=== PATIENT | male | born 1940 | race Caucasian/White ===

== ENCOUNTER → 2017-06-03 | Outpatient (CLI) | payer OTHER, MEDICARE | END | disposition home or self-care (01) | LOC: RAD 14:57 | PROC: 009U3ZZ Drainage of Spinal Canal, Percutaneous Approach (ICD-10-PCS; principal; 2017-06-03) | DX: G20 Parkinson's disease (principal); D33.3 Benign neoplasm of cranial nerves; G91.2 (Idiopathic) normal pressure hydrocephalus; M25.552 Pain in left hip | CPT/HCPCS: 62272; 77003 ==

== ENCOUNTER → 2017-06-22 | Outpatient (CLI) | payer OTHER, MEDICARE | END | disposition home or self-care (01) | LOC: NUC 08:29 | DX: M41.86 Other forms of scoliosis, lumbar region (principal); M46.86 Other specified inflammatory spondylopathies, lumbar region; M17.0 Bilateral primary osteoarthritis of knee; R10.32 Left lower quadrant pain; M47.816 Spondylosis without myelopathy or radiculopathy, lumbar region; Z91.81 History of falling | CPT/HCPCS: 78315; A9503 ==

== ENCOUNTER 2017-08-01 07:59 | Inpatient (IN) | payer OTHER, MEDICARE ==
[~2017-08-01] VITALS: Ht 182.9 cm; Wt 97.4 kg
[2017-08-01 08:36] LABS: BASOPHIL (%) 0.4 % (0-1); EOSINOPHIL (%) 0.8 % (0-5); EOSINOPHIL COUNT 0.1 K/uL (0-0.3); HEMOGLOBIN 14.1 G/DL (12.5-16.6); IMMATURE GRANULOCYTE (%) 0.3 % (0.0-0.7); LYMPHOCYTE (%) 9.5 % (15-42); MCH 29.3 PG (29.0-34.0); MCHC 33.6 G/DL (30.0-36.0); MCV 87.1 FL (86-99); MONOCYTE (%) 4.1 % (3-12); MONOCYTE COUNT 0.4 K/uL (0-0.8); NEUTROPHIL (%) 84.9 % (45-76); NEUTROPHIL COUNT 8.5 K/uL (1.8-6.4); PLATELET COUNT 184 K/uL (156-360); RBC DIS.WIDTH-CV 13.1 % (11.8-14.6); RBC DIS.WIDTH-SD 41.7 % (39-53); RED BLOOD COUNT 4.82 M/uL (4.00-5.50)
[2017-08-01 08:45] LABS: PTT 30.6 SEC (25-37)
[2017-08-01 08:53] LABS: CHLORIDE 103 mEq/L (99-109); POTASSIUM 4.2 mEq/L (3.7-5.4); SODIUM 139 mEq/L (136-147)
[2017-08-01 08:54] LABS: GLUCOSE 170 mg/dL (70-99)
[2017-08-01 08:58] LABS: GFR ESTIMATE (CALCULATED) > 59 mL/min/ (58.99-99999)
[2017-08-01 08:59] LABS: UREA NITROGEN (BUN) 22 mg/dL (9-23)
[2017-08-01 09:05] LABS: TROP-I INTERPRETATION NEGATIVE; TROPONIN-I 0.01 ng/mL (0.0-0.30)
[2017-08-01 09:46] LABS: APPEARANCE CLEAR ((CLEAR)); BILIRUBIN NEGATIVE; BLOOD SMALL; COLOR YELLOW ((YELLOW)); GLUCOSE (STRIP) 50; KETONES 20; LEUKOCYTES NEGATIVE; NITRITE NEGATIVE; PROTEIN (STRIP) >=500; UROBILINOGEN 0.2 MG/DL (0.2-1.0)
[2017-08-01 09:52] LABS: BACTERIA NONE SEEN /HPF; EPITHELIAL CELLS NONE SEEN /HPF; HYALINE CASTS 0-5 /LPF; MUCUS TRACE /LPF; RED BLOOD CELLS 0-5 /HPF (0-5); UCUL ADDED? NO; WHITE BLOOD CELLS 0-5 /HPF (0-5)
[2017-08-01] MEDS ORDERED: METFORMIN HCL500 MG PO (13:35)
[2017-08-01] MEDS ORDERED: CARBIDOPA-LEVO1 EAC7 PO (13:35)
[2017-08-01] MEDS ORDERED: DULOXETINE HCL30 MG PO (13:35)
[2017-08-01] MEDS ORDERED: LEVEMIR FL100 UNIT/1 SC ×2 (13:36)
[2017-08-01] MEDS ORDERED: ATORVASTATIN CA10 MG PO (13:37)
[2017-08-01] MEDS ORDERED: JANUVIA100 MG PO (13:37)
[2017-08-01] MEDS ORDERED: TAMSULOSIN HCL0.4 MG PO (13:37)
[2017-08-01] MEDS ORDERED: AMLODIPINE BESYL5 MG PO (13:37)
[2017-08-01] MEDS ORDERED: LOSARTAN POTASS50 MG PO (13:37)
[2017-08-01] MEDS ORDERED: DIABETA2.5 MG PO (13:38)
[2017-08-01] MEDS ORDERED: CLONAZEPAM0.5 MG PO (13:38)
[2017-08-01] MEDS ORDERED: CARBIDOPA/LEVO1 EACH PO (13:39)
[2017-08-01] MEDS ORDERED: ASPIR 8181 M1 PO (13:40)
[2017-08-01] MEDS ORDERED: CIALIS5 MG PO (13:40)
[2017-08-01 15:37] VITALS: BP 145/72
[2017-08-01 19:29] VITALS: BP 163/76
[2017-08-01 23:58] VITALS: BP 140/70
[2017-08-02] VITALS (7 sets, daily range): BP systolic 137–179; BP diastolic 65–84
[2017-08-02 06:16] LABS: HEMATOCRIT 42.5 % (38.0-50.0); HEMOGLOBIN 14.2 G/DL (12.5-16.6); MCH 29.1 PG (29.0-34.0); MCHC 33.4 G/DL (30.0-36.0); MCV 87.1 FL (86-99); PLATELET COUNT 193 K/uL (156-360); RBC DIS.WIDTH-CV 13.2 % (11.8-14.6); RBC DIS.WIDTH-SD 41.6 % (39-53); RED BLOOD COUNT 4.88 M/uL (4.00-5.50); WHITE BLOOD COUNT 8.2 K/uL (4.1-10.2)
[2017-08-02 06:34] LABS: CHLORIDE 104 MEQ/L (99-109); CREATININE 0.9 MG/DL (0.6-1.3); GFR ESTIMATE (CALCULATED) > 59 mL/min/ (58.99-99999); POTASSIUM 3.5 MEQ/L (3.7-5.4); SODIUM 140 MEQ/L (136-147); UREA NITROGEN (BUN) 17 mg/dL (9-23)
[2017-08-02 06:40] LABS: GLUCOSE 73 mg/dL (70-99)
[2017-08-02 10:19] LABS: HEMOGLOBIN A1c (GLYCOHEMOGLOB) 7.8 % (Below 5.7)
[2017-08-03] VITALS (7 sets, daily range): BP systolic 160–197; BP diastolic 79–94
[2017-08-04 03:34] VITALS: BP 160/86
[2017-08-04 07:38] VITALS: BP 177/87
[2017-08-04 11:17] VITALS: BP 159/84
== END 2017-08-04 13:47 | DRG 83 ==
LOC: EME → EDBD 07:59 → 3EAST 13:13 → EDOF 13:13 → ENRESERV 13:17 → 3EAST 15:37 → EDOF 15:37 → 3EAST 08-04 13:47
PROVIDERS: Emergency Medicine; Family Medicine
DX: S06.5X9A Traumatic subdural hemorrhage with loss of consciousness of unspecified duration, initial encounter (principal); W19.XXXA Unspecified fall, initial encounter; G20 Parkinson's disease; I16.0 Hypertensive urgency; I10 Essential (primary) hypertension; R26.2 Difficulty in walking, not elsewhere classified; E11.9 Type 2 diabetes mellitus without complications; I47.1 Supraventricular tachycardia; N40.1 Benign prostatic hyperplasia with lower urinary tract symptoms; R33.8 Other retention of urine; N39.498 Other specified urinary incontinence; E78.5 Hyperlipidemia, unspecified; Z66 Do not resuscitate; F32.9 Major depressive disorder, single episode, unspecified; F41.9 Anxiety disorder, unspecified; Z91.81 History of falling; Z79.4 Long term (current) use of insulin; Z79.82 Long term (current) use of aspirin
CPT/HCPCS: 70450; 70551; 71045; 80048; 81003; 82948; 83036; 84484; 85025; 85027; 85610; 85730; 93005; 93306; 97530 GO; 97530 GP; 99281; 99285; G8978 GP CM; G8979 GP CL; G8987 GO CL; G8988 GO CK; J0690; J1815

== ENCOUNTER 2017-08-10 11:29 | Emergency (ER) | payer OTHER, MEDICARE ==
[~2017-08-10] VITALS: Ht 185.4 cm; Wt 96.6 kg
[~2017-08-10 11:29] MED LIST: AMLODIPINE BESYL5 MG PO; ASPIR 8181 M1 PO; ATORVASTATIN CA10 MG PO; CARBIDOPA-LEVO1 EAC7 PO; CARBIDOPA/LEVO1 EACH PO; CIALIS5 MG PO; CLONAZEPAM0.5 MG PO; DIABETA2.5 MG PO; DULOXETINE HCL30 MG PO; JANUVIA100 MG PO; LEVEMIR FL100 UNIT/1 SC; LOSARTAN POTASS50 MG PO; METFORMIN HCL500 MG PO; TAMSULOSIN HCL0.4 MG PO
[2017-08-10 12:31] LABS: BASOPHIL (%) 0.8 % (0-1); BASOPHIL COUNT 0.1 K/uL (0-0.1); EOSINOPHIL (%) 2.2 % (0-5); EOSINOPHIL COUNT 0.2 K/uL (0-0.3); HEMOGLOBIN 15.3 G/DL (12.5-16.6); IMMATURE GRANULOCYTE (%) 0.5 % (0.0-0.7); LYMPHOCYTE (%) 16.7 % (15-42); LYMPHOCYTE COUNT 1.5 K/uL (1.0-2.8); MCH 29.2 PG (29.0-34.0); MCHC 33.3 G/DL (30.0-36.0); MCV 87.8 FL (86-99); MONOCYTE (%) 8.2 % (3-12); MONOCYTE COUNT 0.7 K/uL (0-0.8); NEUTROPHIL (%) 71.6 % (45-76); NEUTROPHIL COUNT 6.3 K/uL (1.8-6.4); PLATELET COUNT 181 K/uL (156-360); RBC DIS.WIDTH-SD 41.9 % (39-53); RED BLOOD COUNT 5.24 M/uL (4.00-5.50); WHITE BLOOD COUNT 8.7 K/uL (4.1-10.2)
[2017-08-10 12:41] LABS: CHLORIDE 101 mEq/L (99-109); SODIUM 139 mEq/L (136-147)
[2017-08-10 12:42] LABS: GLUCOSE 246 mg/dL (70-99)
[2017-08-10 12:46] LABS: CREATININE 0.9 mg/dL (0.6-1.3); GFR ESTIMATE (CALCULATED) > 59 mL/min/ (58.99-99999)
[2017-08-10 12:47] LABS: UREA NITROGEN (BUN) 21 mg/dL (9-23)
[2017-08-10 12:53] LABS: TROP-I INTERPRETATION NEGATIVE; TROPONIN-I 0.02 ng/mL (0.0-0.30)
[2017-08-10 15:39] VITALS: BP 151/73
== END 2017-08-10 15:47 ==
LOC: EME → EDBD 11:29 → EME 11:29
PROVIDERS: Emergency Medicine
DX: G20 Parkinson's disease (principal); R51 Headache; W18.30XA Fall on same level, unspecified, initial encounter; E11.9 Type 2 diabetes mellitus without complications; Z79.4 Long term (current) use of insulin; Z91.81 History of falling
CPT/HCPCS: 70450; 71045; 80048; 84484; 85025; 93005; 99281; 99284